=== PATIENT | male | born 1995 | race Caucasian/White ===

== ENCOUNTER 2023-08-19 09:29 | Emergency (ER) | payer OTHER ==
[~2023-08-19] VITALS: Ht 177.8 cm; Wt 91.6 kg
[2023-08-19 09:31] VITALS: BP 128/67; PULSE 65; RESP 16; TEMP 98; O2SAT 99
[2023-08-19 09:57] LABS: BASOPHILS % (AUTO) 0.5 % (0.0-2.0); EOSINOPHILS # (AUTO) 0.3 K/uL (0-0.4); EOSINOPHILS % (AUTO) 2.8 % (0.0-4.0); HEMOGLOBIN 15.9 g/dL (12.0-18.0); LYMPHOCYTES # (AUTO) 2.9 K/uL (2.0-11.5); LYMPHOCYTES % (AUTO) 30.9 % (20.5-51.1); MEAN CORPUSCULAR HEMOGLOBIN 32 pg (27-31); MEAN CORPUSCULAR HGB CONC 35 g/dL (33-37); MEAN CORPUSCULAR VOLUME 89.9 fL (80-94); MONOCYTES # (AUTO) 0.6 K/uL (0.8-1.0); MONOCYTES % (AUTO) 6.2 % (1.7-9.3); NEUTROPHILS # (AUTO) 5.6 K/uL (1.8-7.7); NEUTROPHILS % (AUTO) 59.6 % (42.2-75.2); PLATELET COUNT (AUTO) 207 K/uL (140-450); RED CELL DISTRIBUTION WIDTH 13.4 % (11.6-13.7); WHITE BLOOD COUNT (AUTO) 9.4 K/uL (4.8-10.8)
[2023-08-19] MEDS: MORPHINE SULFATE 4 MG/ML SYR IVP ONE (10:03)
[2023-08-19 10:11] LABS: ALBUMIN 3.9 g/dL (3.4-5.0); ANION GAP 9.7 (8-16); CALCIUM 8.9 mg/dL (8.5-10.1); CARBON DIOXIDE 32.5 mmol/L (21-32); CREATININE 1.2 mg/dL (0.6-1.3); POTASSIUM 4.2 mmol/L (3.5-5.1); TOTAL PROTEIN, SERUM 7.5 g/dL (6.4-8.2)
[2023-08-19] MEDS ORDERED: AMOX-1230 PO (11:28)
== END 2023-08-19 12:09 | disposition home or self-care (01) ==
LOC: MED 09:29
DX: R10.84 Generalized abdominal pain (principal); Z79.899 Other long term (current) drug therapy
CPT/HCPCS: 36415; 74177; 80053; 81002; 83690; 85025; 96374; 99285; J2270; Q9967

== ENCOUNTER 2023-11-30 02:45 | Emergency (ER) | payer OTHER ==
[~2023-11-30] VITALS: Ht 170.2 cm; Wt 99.3 kg
[~2023-11-30 02:45] MED LIST: AMOX-1230 PO
[2023-11-30 03:11] VITALS: BP 134/72; PULSE 82; RESP 18; TEMP 98; O2SAT 99
[2023-11-30] MEDS: ACETAMINOPHEN EXTRA STRENGTH 500 MG TAB PO ONE (03:51)
[2023-11-30] MEDS: IBUPROFEN 600 MG TAB PO ONE (03:51)
[2023-11-30] MEDS: DICYCLOMINE 20 MG/2 ML VIAL IM ONE (03:52)
[2023-11-30 03:54] VITALS: BP 134/72; PULSE 82; RESP 18; TEMP 36.66960; O2SAT 99
== END 2023-11-30 03:54 | disposition home or self-care (01) ==
LOC: MED 02:45
DX: R10.84 Generalized abdominal pain (principal); Z79.899 Other long term (current) drug therapy
CPT/HCPCS: 99281; J0500